=== PATIENT | female | born 1930 | race Caucasian/White ===

== ENCOUNTER 2018-10-26 18:12 | Emergency (ER) | payer OTHER ==
[~2018-10-26] VITALS: Ht 154.9 cm; Wt 99.8 kg
[2018-10-26] MEDS ORDERED: NORVASC5 MG PO (18:59)
[2018-10-26] MEDS ORDERED: TOPROL XL25 MG PO (19:00)
[2018-10-26] MEDS ORDERED: NAMENDA 10 MG T10 MG PO (19:00)
[2018-10-26] MEDS ORDERED: TYLENOL325 MG PO (19:03)
[2018-10-26] MEDS ORDERED: OMEPRAZOLE 20 M20 M1 PO (19:03)
[2018-10-26] MEDS ORDERED: VITAMIN D3400 UNIT PO (19:04)
[2018-10-26 19:16] LABS: URINE BILIRUBIN NEGATIVE (Negative); URINE BLOOD 1+ (Negative); URINE CLARITY CLEAR; URINE COLOR YELLOW; URINE GLUCOSE-RANDOM* NEGATIVE (Negative); URINE KETONES TRACE (Negative); URINE NITRITE-REFLEX NEGATIVE (Negative); URINE PROTEIN (DIPSTICK) TRACE (Negative)
[2018-10-26 19:18] LABS: URINE LEUKOCYTES-REFLEX 1+ (Negative)
[2018-10-26 19:19] LABS: ABSOLUTE NEUTROPHILS 6.1 thou/uL (1.4-8.2); BASOPHILS 0.4 % (0.0-2.0); EOSINOPHILS 1.4 % (0.0-3.0); HEMATOCRIT 46.4 % (37.0-47.0); HEMOGLOBIN 15.4 gm/dL (12.0-15.0); MCHC 33.1 g/dL (28.0-37.0); MCV 81.6 fL (80.0-100.0); MONOCYTES 7.7 % (1.0-8.0); PLATELET COUNT 205 thou/uL (150-400); POLYS 69.5 % (36.0-66.0); RBC 5.68 mil/uL (4.20-5.00); WBC 8.8 thou/uL (4.0-11.0)
[2018-10-26 19:28] LABS: ANION GAP 11 mmol/L (7-16); BUN 24 mg/dL (7-18); CHLORIDE 107 mmol/L (98-107); CO2 26 mmol/L (21-32); CREATININE 1.2 mg/dL (0.6-1.0); GLUCOSE 114 mg/dL (74-106); POTASSIUM 4.6 mmol/L (3.5-5.1); SODIUM 144 mmol/L (136-145)
[2018-10-26 19:31] LABS: BACTERIA-REFLEX 1-9 Few /HPF (None Seen); CASTS None Seen /LPF (None Seen); CRYSTALS None Seen /LPF (None Seen); MUCUS 4-6 Moderate strn/LPF (None Seen); SQUAMOUS >10 Many /LPF (0-3); URINE RBC 3-10 Few /HPF (0-2); WBC CLUMPS Few (None Seen)
[2018-10-26 19:39] LABS: ALBUMIN 3.3 g/dL (3.4-5.0); MAGNESIUM 1.7 mg/dL (1.8-2.4); SGOT 26 U/L (15-37); SGPT 22 U/L (30-65); TOTAL BILIRUBIN 0.4 mg/dL (<0.1-1.0); TOTAL PROTEIN 6.7 g/dL (6.4-8.2); TROPONIN-I <0.06 ng/mL (<0.06)
[2018-10-26] MEDS ORDERED: KEFLEX500 M1 PO (20:42)
[2018-10-26 23:54] VITALS: BP 167/76
--- NOTE | 2018-10-27 18:02 | EKG ---
[address] [address] ELECTROCARDIOGRAM REPORT Name: AGATA ROBERT Room #: [facility]#: [id number] ������������������ Admission: 10/26/18 ������������������ Attend Phys: Discharge: 10/26/18 ������������������ Date of : [birth year] Report #: [id number] ����������������������������������������������������������������� [id number] THIS REPORT FOR: //name// [facility] ED Test Date: 2018-10-26 Test Time: 19:15:56 Pat Name: AGATA ROBERT Department: Room: Gender: F Medical Facilities Section Director: .... : 1930 Requested By: Ovidio Johnson Order Number: [id number] MD: Keon Becerra Measurements Intervals [place] Rate: 65 P: -62 MT: 149 QRS: -37 QRSD: 94 T: 51 QT: 431 QTc: 449 Interpretive Statements Sinus or ectopic atrial rhythm Abnormal R-wave progression, late transition Inferior infarct, old No previous ECG available for comparison Electronically Signed On 10-27-2018 18:02:20 CDT by Keon Becerra [email or web address] ��������������������������������������������� <ELECTRONICALLY SIGNED> ���������������������������������������� By: Keon Becerra MD ��������������������������������������������� 10/27/181801 14 14 Keon Becerra MD /SUSANNE
== END 2018-10-26 23:50 | disposition home or self-care (01) ==
LOC: ER 18:12
PROVIDERS: Emergency Medicine
DX: N39.0 Urinary tract infection, site not specified (principal); N18.9 Chronic kidney disease, unspecified; I51.7 Cardiomegaly; H10.9 Unspecified conjunctivitis; F03.90 Unspecified dementia, unspecified severity, without behavioral disturbance, psychotic disturbance, mood disturbance, and anxiety; R53.1 Weakness; M79.89 Other specified soft tissue disorders; Z88.2 Allergy status to sulfonamides; Z88.8 Allergy status to other drugs, medicaments and biological substances